=== PATIENT | female | born 1970 | race Caucasian/White ===

== ENCOUNTER 2016-12-28 21:35 | Emergency (ER) | payer SELFPAY | END 2016-12-28 23:20 | disposition left against medical advice (07) | LOC: E/R 21:35 | DX: Z53.21 Procedure and treatment not carried out due to patient leaving prior to being seen by health care provider (principal) ==

== ENCOUNTER 2017-06-07 09:17 | Emergency (ER) | END 2017-06-07 12:58 | disposition home or self-care (01) ==

== ENCOUNTER 2017-09-22 18:21 | Emergency (ER) | END 2017-09-23 00:10 | disposition home or self-care (01) ==